=== PATIENT | female | born 1945 | race Caucasian/White ===

== ENCOUNTER 2016-08-04 06:49 | Day surgery (SDC) | payer MEDICARE, OTHER ==
[~2016-08-04 06:49] MED LIST: Lidocaine 1% with EPINEPHrine 1:100,000 50 ML MDV ONE
[2016-08-04] MEDS ORDERED: Propofol 200 MG/20 ML SDV ONE (06:59)
[2016-08-04] MEDS ORDERED: Midazolam 1 MG/ML 2 ML SDV ONE (06:59)
[2016-08-04] MEDS ORDERED: fentaNYL 100 MCG/2 ML SDV ONE (06:59)
[2016-08-04] MEDS ORDERED: Lidocaine 0.5% 50 ML SDV ONE (07:00)
[2016-08-04] MEDS ORDERED: Lactated Ringers 1,000 ML IV SCH (07:30)
[2016-08-04 09:34] VITALS: BP 121/70
[2016-08-04] MEDS ORDERED: Ondansetron 4 MG/2 ML SDV IVPUSH ONE (09:35)
[2016-08-04] MEDS ORDERED: Prochlorperazine 10 MG/2 ML SDV IVPUSH ONE (10:30)
--- NOTE | 2016-08-04 11:31 | OR ---
DATE OF PROCEDURE: 08/04/2016 PREOPERATIVE DIAGNOSIS: Right carpal tunnel syndrome. POSTOPERATIVE DIAGNOSIS: Right carpal tunnel syndrome. PROCEDURE: Right carpal tunnel release. ANESTHESIA: Right [place] block. INDICATION: This 70-year-old white female complains of bilateral hand pain worse on the right. She has a history of a left carpal tunnel release in the remote past. She underwent nerve conduction studies of the pain which followed the distribution of the median nerve. This showed on the right carpal tunnel syndrome, which is moderate to perhaps very early severe. She also has carpal tunnel syndrome on the left, which is mild to early moderate. She is admitted for a right carpal tunnel release. I counseled her for surgery including risks and alternatives, and she gave her informed consent to proceed. DESCRIPTION OF PROCEDURE: After adequate right upper extremity [place] block anesthesia was obtained, her right upper extremity was prepped and draped in the usual sterile fashion. Time-out was held. A marking pen was used to serene the planned incision, which coursed along the thenar crease back to the distal wrist flexion crease. At this point , the planned incision curved obliquely ulnarly. The skin incision was made. This was carried deep bluntly and sharply to the transverse carpal ligament. The transverse carpal ligament was then divided along its entire course staying at its most ulnar aspect. This nicely freed up the nerve. All looked well. The incision was irrigated and dried. The incision was closed with a running stitch of 5-0 Prolene. A bulky hand dressing was applied. The tourniquet was cycled down. The patient was taken to the recovery room in good condition, having tolerated the procedure well. Jared Peralta MD /[id number] MTDD
== END 2016-08-04 10:50 | disposition home or self-care (01) ==
LOC: JP.SDS 06:49
PROVIDERS: ATTEND Surgery
DX: G56.01 Carpal tunnel syndrome, right upper limb (principal); E78.00 Pure hypercholesterolemia, unspecified; F32.9 Major depressive disorder, single episode, unspecified; Z88.0 Allergy status to penicillin; Z88.2 Allergy status to sulfonamides; Z88.8 Allergy status to other drugs, medicaments and biological substances; E03.9 Hypothyroidism, unspecified; Z90.49 Acquired absence of other specified parts of digestive tract; Z90.710 Acquired absence of both cervix and uterus; Z98.890 Other specified postprocedural states; Z95.0 Presence of cardiac pacemaker; Z98.51 Tubal ligation status; Z79.82 Long term (current) use of aspirin; Z79.899 Other long term (current) drug therapy; Z91.018 Allergy to other foods
CPT/HCPCS: 64721; J0780; J2250; J2405; J2704; J3010; J7120